=== PATIENT | male | born 1995 | race Caucasian/White ===

== ENCOUNTER 2021-04-21 18:13 | Emergency (ER) | payer MEDICAID ==
[~2021-04-21] VITALS: Ht 167.6 cm; Wt 67.0 kg
[2021-04-21] MEDS ORDERED: HYDROCODONE/ACETAMINOPHEN 5/325MG TABLET PO ONE (19:45)
[2021-04-21] MEDS ORDERED: TETANUS, DIPHTHERIA, PERTUSSIS VAC/PF 0.5ML (>7YR OLD) IM ONE (19:45)
[2021-04-21] MEDS ORDERED: LIDOCAINE HCL/EPINEPHRINE 1%-EPI 1:100,000 20 ML VIAL INFIL ONE (19:45)
[2021-04-21] MEDS ORDERED: BACITRACIN ZINC OINT UDPKT TOP ONE ×2 (19:45→22:45)
[2021-04-21] MEDS ORDERED: VISCOUS LIDOCAINE 2% 15 ML UDC MM STA (19:48)
[2021-04-21] MEDS ORDERED: BUPIVACAINE HCL/PF 0.25% (2.5MG/ML) 10ML INFIL ONE (20:00)
[2021-04-21] MEDS ORDERED: LIDOCAINE HCL 1% 20ML VIAL (Pyxis) INJ INFIL ONE (21:30)
[2021-04-21] MEDS ORDERED: AMOX-424 MT (22:32)
[2021-04-21] MEDS ORDERED: HYDR-4001 MT (22:32)
[2021-04-21] MEDS ORDERED: IBUP-2028 MT (22:32)
[2021-04-21 22:58] VITALS: BP 121/69
== END 2021-04-21 22:58 | disposition home or self-care (01) ==
LOC: ER 18:13
DX: S01.21XA Laceration without foreign body of nose, initial encounter (principal); W01.118A Fall on same level from slipping, tripping and stumbling with subsequent striking against other sharp object, initial encounter; Y93.89 Activity, other specified; Y92.89 Other specified places as the place of occurrence of the external cause; Z23 Encounter for immunization
CPT/HCPCS: 12014; 70486; 90471; 90715; 99284; A4217; J3490; Z7610

== ENCOUNTER 2021-04-29 18:45 | Emergency (ER) | payer MEDICAID ==
[~2021-04-29] VITALS: Ht 165.1 cm; Wt 68.6 kg
[~2021-04-29 18:45] MED LIST: AMOX-424 MT; HYDR-4001 MT; IBUP-2028 MT
[2021-04-29 18:50] VITALS: BP 127/86
== END 2021-04-29 20:32 | disposition home or self-care (01) ==
LOC: ER 18:45
DX: X58.XXXD Exposure to other specified factors, subsequent encounter (principal); Z79.899 Other long term (current) drug therapy
CPT/HCPCS: 99281; Z7610